=== PATIENT | female | born 1985 | race African-American/Black ===

== ENCOUNTER 2017-07-13 15:23 | Emergency (ER) | payer BC ==
[2017-07-13] MEDS ORDERED: ONDANSETRON HCL INJ/PF 4 MG/2 ML SDV IV ONE (17:21)
[2017-07-13] MEDS ORDERED: NORMAL SALINE 1000 ML 1,000 ML IV ONE ×2 (17:21→19:44)
[2017-07-13 18:11] LABS: APPEARANCE,URINE SLIGHTLY-CLOUDY; BILIRUBIN,URINE NEGATIVE (NEGATIVE); GLUCOSE, URINE NEGATIVE (NEGATIVE); KETONES,URINE 20 mg/dL (NEGATIVE); LEUKOCYTE ESTERASE,URINE MODERATE (NEGATIVE); NITRITE,URINE NEGATIVE (NEGATIVE); PROTEIN,URINE NEGATIVE (NEGATIVE); UROBILINOGEN,URINE NEGATIVE mg/dL (<2.0)
[2017-07-13 18:13] LABS: ABSOLUTE LYMPHOCYTES (AUTO) 1.1 10^3/uL (0.5-4.7); ABSOLUTE MONOCYTES (AUTO) 0.3 10^3/uL (0.1-1.4); ABSOLUTE NEUT (AUTO) 9.5 10^3/uL (1.7-8.2); BASOPHILS % (AUTO) 0.5 % (0-2); HEMATOCRIT 38.6 % (36.0-47.0); HEMOGLOBIN 12.2 g/dL (12.0-15.5); LYMPHOCYTES % (AUTO) 10.2 % (13-45); MEAN CORPUSCULAR HEMOGLOBIN 22.4 pg (27.0-33.4); MEAN CORPUSCULAR HGB CONC 31.7 g/dL (32.0-36.0); MEAN CORPUSCULAR VOLUME 71 fl (80-97); RED BLOOD COUNT 5.47 10^6/uL (3.72-5.28); RED CELL DISTRIBUTION WIDTH 15.7 % (11.5-14.0); SEGMENTED NEUTROPHILS % (AUTO) 86.3 % (42-78)
[2017-07-13 18:15] LABS: BACTERIA,URINE TRACE /HPF
[2017-07-13 18:37] LABS: ALANINE AMINOTRANSFERASE 23 U/L (9-52); ALBUMIN 4.5 g/dL (3.5-5.0); ALKALINE PHOSPHATASE 94 U/L (38-126); ANION GAP 13 (5-19); ASPARTATE AMINO TRANSFERASE 17 U/L (14-36); BILIRUBIN,DIRECT 0.4 mg/dL (0.0-0.4); BILIRUBIN,TOTAL 0.7 mg/dL (0.2-1.3); BLOOD UREA NITROGEN 8 mg/dL (7-20); CALCIUM 9.7 mg/dL (8.4-10.2); CARBON DIOXIDE 24 mmol/L (22-30); CHLORIDE 104 mmol/L (98-107); CREATININE RESULT 0.59 mg/dL (0.52-1.25); GLUCOSE 89 mg/dL (75-110); LIPASE 44.9 U/L (23-300); SODIUM 140.9 mmol/L (137-145); TOTAL PROTEIN 7.8 g/dL (6.3-8.2)
[2017-07-13] MEDS ORDERED: METOCLOPRAMIDE HCL INJ/PF 10 MG/2 ML SDV IV ONE (19:44)
--- NOTE | 2017-07-13 19:47 | ER Document Report ---
ED Medical Screen (RME) - General Chief Complaint: Vomiting/Diarrhea Stated Complaint: NAUSEA Time Seen by Provider: 07/13/17 17:21 Mode of Arrival: Ambulatory Information source: Patient Notes: Patient has severe nausea with vomiting and abdominal cramping. TRAVEL OUTSIDE OF THE [place] IN LAST 30 DAYS: No - Related Data Allergies/Adverse Reactions: No Known Allergies Allergy (Verified 07/13/17 15:24) Home Medications: Current Home Medications Norethindrone-E.estradiol-Iron [Microgestin Fe 1-20 Tablet] 1 each PO DAILY 11/24 [History] Past Medical History - Social History Frequency of alcohol use: None Drug Abuse: None Renal/ Medical History: Denies: Hx Peritoneal Dialysis Past Surgical History: Reports: Hx Orthopedic Surgery - [place] - Immunizations Immunizations up to date: Yes Hx Diphtheria, Pertussis, Tetanus Vaccination: No Physical Exam - Vital signs Vitals: Temp Pulse Resp BP Pulse Ox 98.4 F 93 20 129/65 H 100 07/13/17 15:42 07/13/17 15:42 07/13/17 15:42 07/13/17 15:42 07/13/17 15:42 Course - Vital Signs Vital signs: Temp Pulse Resp BP Pulse Ox 98.4 F 93 20 129/65 H 100 07/13/17 15:42 07/13/17 15:42 07/13/17 15:42 07/13/17 15:42 07/13/17 15:42 - Laboratory Result Diagrams: 07/13/17 18:00 07/13/17 18:00 Laboratory results interpreted by me: 07/13/17 07/13/17 17:45 18:00 WBC 11.0 H RBC 5.47 H MCV 71 L MCH 22.4 L MCHC 31.7 L RDW 15.7 H Seg Neutrophils % 86.3 H Lymphocytes % 10.2 L Absolute Neutrophils 9.5 H Urine Ketones 20 H Urine Blood LARGE H Ur Leukocyte Esterase MODERATE H
[2017-07-13] MEDS ORDERED: KETOROLAC TROMETHAMINE INJ/PF 30 MG/1 ML SDV IV ONE (22:45)
[2017-07-13] MEDS ORDERED: LIDOCAINE 5% (700 MG) TRANSDERMAL ADH..PATCH TP ONE (22:46)
--- NOTE | 2017-07-13 22:49 | ER Document Report ---
ED General - General Chief Complaint: Vomiting/Diarrhea Stated Complaint: NAUSEA Time Seen by Provider: 07/13/17 17:21 Mode of Arrival: Ambulatory Notes: Patient is a 32-year-old female who presents with 24 hours of nausea, vomiting, diarrhea and left-sided flank pain. Patient states that her symptoms have been constant since onset. Nothing seems to improve or worsen her symptoms. The pain in her left flank is described as an intermittent, throbbing, aching pain. She denies a history of similar symptoms in the past. She is uncertain if there have been any sick contacts. She has not seen her primary doctor regarding today's concerns. She denies any melena, hematochezia, or hematemesis. She has been able to tolerate oral intake prior to arrival. She has not had a fever. She denies any dysuria or hematuria. No vaginal bleeding or discharge. TRAVEL OUTSIDE OF THE [place] IN LAST 30 DAYS: No - Related Data Allergies/Adverse Reactions: No Known Allergies Allergy (Verified 07/13/17 15:24) Home Medications: Current Home Medications Norethindrone-E.estradiol-Iron [Microgestin Fe 1-20 Tablet] 1 each PO DAILY 11/24 [History] Past Medical History - General Information source: Patient - Social History Smoking Status: Current Every Day Smoker Frequency of alcohol use: None Drug Abuse: None Family History: Reviewed & Not Pertinent Patient has suicidal ideation: No Patient has homicidal ideation: No Renal/ Medical History: Denies: Hx Peritoneal Dialysis Past Surgical History: Reports: Hx Orthopedic Surgery - [facility] - Immunizations Immunizations up to date: Yes Hx Diphtheria, Pertussis, Tetanus Vaccination: No Physical Exam - Vital signs Vitals: Temp Pulse Resp BP Pulse Ox 98.4 F 93 20 129/65 H 100 07/13/17 15:42 07/13/17 15:42 07/13/17 15:42 07/13/17 15:42 07/13/17 15:42 Course - Re-evaluation Re-evalutation: 07/13/17 22:46 Presentation of an overall well-appearing patient in no acute distress with complaints of nausea, vomiting, diarrhea as well as left flank pain. This is consistent with likely viral gastroenteritis. Patient has no abdominal tenderness on exam and specifically no tenderness in the RLQ, LLQ, RUQ. She does have some mild tenderness to the left flank but the urinalysis is not consistent with an acute nephrolithiasis nor is her clinical history. It is also not consistent with an acute pyelonephritis based on the urinalysis. Overall well hydrated on exam. Able to tolerate oral intake here in the emergency department. Low clinical suspicion for any acute life-threatening etiology based on exam and history including acute cholecystitis, SBO, appendicitis, nephrolithiasis, or pylonephritis. CMP without evidence of acute hepatitis or significant dehydration. At this time will discharge with return precautions and follow-up recommendations. Verbal discharge instructions given a the bedside and opportunity for questions given. Medication warnings reviewed. Patient is in agreement with this plan and has verbalized understanding of return precautions and the need for primary care follow-up in the next 24-72 hours. - Vital Signs Vital signs: Temp Pulse Resp BP Pulse Ox 98.9 F 104 H 22 H 115/51 L 100 07/13/17 23:15 07/13/17 23:15 07/13/17 23:15 07/13/17 23:15 07/13/17 23:15 - Laboratory Result Diagrams: 07/13/17 18:00 07/13/17 18:00 Laboratory results interpreted by me: 07/13/17 07/13/17 17:45 18:00 WBC 11.0 H RBC 5.47 H MCV 71 L MCH 22.4 L MCHC 31.7 L RDW 15.7 H Seg Neutrophils % 86.3 H Lymphocytes % 10.2 L Absolute Neutrophils 9.5 H Urine Ketones 20 H Urine Blood LARGE H Ur Leukocyte Esterase MODERATE H Discharge - Discharge Clinical Impression: Vomiting and diarrhea, Left flank pain Condition: Good Disposition: HOME, SELF-CARE Additional Instructions: Your symptoms are likely due to a viral illness and should resolve in the next several days. You can take [id number] loperamide also known as Imodium as needed for diarrhea per box instructions. Continue to stay hydrated with plenty of solution such as Gatorade or Pedialyte. You are being prescribed Zofran to take as needed for nausea and vomiting. Please return if you develop severe abdominal pain, pass out, become unable to tolerate any oral fluids for 12 more hours, or any other symptoms that are concerning to you.
[2017-07-13] MEDS: ONDANSETRON ODT 4 MG TAB (6 TAB/DSPK) PO PRN ×2 (22:57→23:20)
[2017-07-13 23:18] VITALS: BP 115/51
== END 2017-07-13 23:46 | disposition home or self-care (01) ==
LOC: ER 15:23
DX: R11.2 Nausea with vomiting, unspecified (principal); R19.7 Diarrhea, unspecified; R10.9 Unspecified abdominal pain; Z79.899 Other long term (current) drug therapy; F17.200 Nicotine dependence, unspecified, uncomplicated
CPT/HCPCS: 99283; 96361; 96374; 96375; 36415; 83690; 85025; 81025; 80053; 81001; J1885; J2765; J2405; J7030